=== PATIENT | male | born 1980 | race Hispanic/Latino ===

== ENCOUNTER 2019-12-07 17:17 | Inpatient (IN) ==
[~2019-12-07 17:17] MED LIST: D50W SYRINGE ONE; NS 1,000 ML ONE
[2019-12-07] MEDS ORDERED: HUMULIN R (PARKWAY) ONE ×2 (17:20→18:00)
[2019-12-07] MEDS ORDERED: D50W SYRINGE IV PRN ×4 (17:25→22:30)
[2019-12-07] MEDS ORDERED: HUMULIN R IV ONE ×3 (17:25→22:30)
[2019-12-07] MEDS ORDERED: NS 1,000 ML IV ONE (17:25)
[2019-12-07] MEDS: NS 1,000 ML IV SCH ×3 (17:30→22:35)
[2019-12-07] MEDS ORDERED: SODIUM BICARBONATE 8.4% ONE ×2 (17:35→18:44)
[2019-12-07 17:41] LABS: HEMATOCRIT 46.1 % (42.0-52.0); HEMOGLOBIN 15.6 g/dL (14.0-18.0); MCH 30.6 PG (27-31); MCHC 33.8 g/dL (33-37); MCV 90.6 FL (81-99); MPV 10.9 FL (7.4-10.4); RBC 5.09 XMIL (4.7-6.1); RDW 13.4 % (11.5-14.5); WBC 13.83 X1000 (4.8-10.8)
[2019-12-07] MEDS ORDERED: SODIUM BICARBONATE 8.4% 100 MEQ in STERILE WATER INJ. 500 ML IV PRN ×2 (17:44→22:30)
[2019-12-07] MEDS ORDERED: POTASSIUM CHLORIDE 20% LIQUID PO PRN ×2 (17:44→22:30)
[2019-12-07] MEDS ORDERED: POTASSIUM CHLORIDE 10% LIQUID PO PRN ×2 (17:44→22:30)
[2019-12-07] MEDS ORDERED: MAGNESIUM SULFATE 2 GM/S.W.I. 2 GM/50 ML IVPB IV PRN ×2 (17:44→22:17)
[2019-12-07] MEDS ORDERED: SODIUM PHOSPHATE 30 MMOL in D5W 250 ML IV PRN ×2 (17:44→22:30)
[2019-12-07] MEDS ORDERED: POTASSIUM CHLORIDE 20 MEQ/SWI 20 MEQ/100 ML IVPB IV PRN ×3 (17:44→22:30)
[2019-12-07 17:51] LABS: BLOOD TYPE ARTERIAL; SAMPLE BLOOD
[2019-12-07 17:51] LABS: URINE SOURCE CATH
[2019-12-07 17:52] LABS: METHB 0.8 % (0.0-1.5); PCO2(98.6) 13 mmHg (35-45); PO2(98.6) 140 mmHg (60-100); SAO2 96.9 % (95.0-100.0); THB 15.6 g/dL (11.5-17.4)
[2019-12-07 17:53] LABS: ALLEN TEST YES; MODALITY ROOM AIR; O2(CT) 21.2 mL/dL (15.0-23.0); O2HB 95.6 % (95.0-99.0)
[2019-12-07 17:55] LABS: BILIRUBIN URINE NEGATIVE (NEGATIVE); BLOOD URINE TRACE (NEGATIVE); COLOR STRAW; GLUCOSE URINE >1000 mg/dL (NEGATIVE); KETONE URINE 100 mg/dL (NEGATIVE); LEUKOCYTES URINE NEGATIVE (NEGATIVE); NITRITE URINE NEGATIVE (NEGATIVE); PROTEIN URINE TRACE mg/dL (NEGATIVE); SP GRAVITY URINE 1.019; TURBIDITY URINE CLEAR (CLEAR); UROBILINOGEN URINE NORMAL (NORMAL)
[2019-12-07 17:56] LABS: UR EPITHELIAL CELLS <10 /HPF (<10); URINE BACTERIA NEGATIVE /HPF; URINE RBC <10 /HPF (<10); URINE WBC <10 /HPF (<10)
[2019-12-07] MEDS ORDERED: NS 100 ML ONE (18:01)
[2019-12-07 18:03] LABS: ACETONE SERUM SMALL (NEGATIVE)
[2019-12-07 18:17] LABS: UR AMPHETAMINES QUAL NONE DETECTED (NONE DETECT); UR BARBITUATES QUAL NONE DETECTED (NONE DETECT); UR BENZODIAZEPIN QUAL NONE DETECTED (NONE DETECT); UR CANNABINOIDS QUAL NONE DETECTED (NONE DETECT); UR COCAINE QUAL NONE DETECTED (NONE DETECT); UR METHADONE QUAL NONE DETECTED (NONE DETECT); UR METHAMPHETAMINE QUAL NONE DETECTED (NONE DETECT); UR OPIATES QUAL NONE DETECTED (NONE DETECT); UR OXYCODONE QUAL NONE DETECTED (NONE DETECT); UR PCP QUAL NONE DETECTED (NONE DETECT); UR PROPOXYPHENE QUAL NONE DETECTED (NONE DETECT); UR TCA QUAL NONE DETECTED (NONE DETECT)
[2019-12-07] MEDS: HUMULIN R 100 UNIT in NS 100 ML IV SCH ×3 (18:18→20:30)
[2019-12-07 18:21] LABS: AGAP 34; ALBUMIN 4.9 g/dL (3.5-5.0); ALKALINE PHOSPHATASE 201 U/L (32-122); BUN 20 mg/dL (8-22); CALCIUM 8.3 mg/dL (8.8-10.2); CHLORIDE 85 mmol/L (98-107); CK PROFILE 100 U/L (24-204); COSMO 292; CREATININE 1.1 mg/dL (0.7-1.2); ESTIMATED GFR > 60; GOT 21 U/L (10-34); MAGNESIUM 2.3 mg/dL (1.5-2.7); PHOSPHORUS 4.8 mg/dL (2.7-4.5); POTASSIUM 4.4 mmol/L (3.5-5.1); SODIUM 122 mmol/L (136-145); TCO2 3 mmol/L (25-35); TOTAL BILIRUBIN < 0.15 mg/dL (0.20-1.00)
[2019-12-07 18:24] LABS: GLUCOSE 910 mg/dL (70-104); GPT 22 U/L (10-44)
[2019-12-07] MEDS ORDERED: ZOFRAN IV PRN (18:42)
--- NOTE | 2019-12-07 18:58 | Diag Imaging Result Doc PS360 ---
EXAM: CHEST-PORTABLE 12/07/2019 HISTORY: sob TECHNIQUE: AP portable erect at 1846 COMMENT: The inspiration is suboptimal. There are no previous studies. The heart size and pulmonary vascularity are within normal limits. There is no evidence of focal pulmonary opacity. IMPRESSION: No acute disease. Electronically signed by Andrez Robertson 12/07/2019 6:55 PM
[2019-12-07] MEDS ORDERED: SODIUM BICARBONATE 8.4% IV PUSH ONE ×2 (19:00→22:10)
--- NOTE | 2019-12-07 19:06 | PROVIDER DOCUMENTATION ---
This chart was entered by Nancy Baker Scribe, acting as scribe for Lalo See MD. HPI-General Adult - General Chief Complaint: DKA ALERT Stated Complaint: POSS BLOOD SUGAR Time Seen by Provider: 12/07/19 17:17 Source: patient, family (daughter) Unable to obtain history due to:: altered Allergies/Adverse Reactions: Patient Allergies Allergy/AdvReac Type Severity Reaction Status Date / Time No Known Allergies Allergy Verified 12/07/19 17:54 - History of Present Illness -Gen Adult Nature of Presenting Problems: 39 yohm presents to the ed via pov with ams and weakness. per daughter pt is IDDM and was at a meeting when he became confused and lethargic. pt has insulin at home and daughter sts she is unsure if he takes his insulin at all. pt FSBG checked in ed was greater then 500. Location of Pain/Injury: reports: generalized (weakness) Severity: reports: severe Onset/Duration: reports: this afternoon Timing: reports: still present, constant Context/Activities at Onset: reports: light activity Modifying Factors: improves with: other (insulin) Associated Symptoms: reports: genitourinary problems (increased urination), weakness, trouble walking. denies: nausea, shortness of breath, vomiting Similar Symptoms Previously?: Yes (iddm) Recently seen or treated by another doctor?: No - Diabetes Related Context Context: reports: high blood sugar, change in mental status Review of Systems - Adult - REVIEW OF SYSTEMS - ADULT Constitutional: denies: chills, fever Eyes: reports: no symptoms reported Ears, Nose, Mouth & Throat: reports: no symptoms reported Cardiovascular: denies: chest pain, palpitations Respiratory: denies: cough, shortness of breath, wheezing Gastrointestinal: denies: diarrhea, nausea, vomiting Genitourinary: reports: no symptoms reported Musculoskeletal: reports: see HPI, other (generalized weakness) Integumentary: reports: no symptoms reported Neurological: reports: see HPI, slurred speech, other (ams with confusion) Psychiatric: reports: no symptoms reported Endocrine: reports: see HPI, excessive sweating, increased thirst, polyuria Hematologic/Lymphatic: reports: no symptoms reported Allergic/Immunologic: reports: no symptoms reported All Other Systems: Reviewed and Negative Past History - Adult - PAST MEDICAL HISTORY-ADULT Review of Records: reports: Old Records Reviewed, Nursing Assessment Review, Medications Reviewed, Social history reviewed & non-contributory. Major Childhood Illnesses: reports: denies history Cardiovascular: reports: denies history Respiratory: reports: denies history Gastrointestinal: reports: denies history Genitourinary: reports: denies history Musculoskeletal: reports: denies history Neurological: reports: denies history Endocrine/Immune: reports: Diabetes Diabetes Type: Type 2 Diabetes controlled by:: Insulin Dependent Other Conditions: reports: denies history - PRIOR SURGERIES/PROCEDURES Surgical/Procedure History: reports: reviewed, not pertinent - IMMUNIZATION STATUS Childhood Immunizations: See Nurse Assessment Flu Vaccine: See Nurse Assessment - FAMILY HISTORY Family History: reviewed, not pertinent - SOCIAL HISTORY Smoking: denies Substance Use: denies Living Situation: family Physical Exam-General - PHYSICAL EXAM-ADULT Exam Limited by: pt is confused Initial Vital Signs Reviewed: Yes (BP170/108 HR-112 temp-94.8 rectal) - CONSTITUTIONAL General Appearance: lethargic, slow to respond - EYES Eyes: PERRL/EOMI - HEAD, EARS, NOSE, MOUTH & THROAT HENMT: negative: moist mucous membranes (dry) - NECK Neck: normal inspection - RESPIRATORY Respiratory: chest non-tender, lungs clear, increased rate, other (pt has kussmaul breathing) - CARDIOVASCULAR Cardiovascular: normal peripheral pulses, tachycardia (112) - CHEST (BREASTS) Chest/Breast: deferred - GASTROINTESTINAL (ABDOMEN) Abdominal Exam: non tender, soft, other (well healed scar left to umbilical region/pt does not have bruising or bhakta where insulin would be injected in abd on exam) - GENITOURINARY Male Genitalia: deferred Rectal Exam: deferred Hemoccult Exam: deferred - MUSCULOSKELETAL Extremity: normal capillary refill, other (generalized weakness unable to stand unassisted) - SKIN Integumentary: diaphoresis - PSYCHIATRIC Psych/Mental Status: disoriented x 3 Progress - PLAN OF CARE/RESULTS Result Diagrams: 12/07/19 17:24 12/07/19 17:24 - REASSESSMENT Reassessment #1 Time Reassessed: 17:31 Status: improving (pt is improving with insulin and fluid with dr see at bedside) Reassessment #2 Time Reassessed: 17:59 Status: unchanged (bear hugger in place to get body temp raised) - EKG 1 Time of EKG reading by physician:: 17:22 EKG Read and Signed by:: Lalo See EKG Interpretation (*Must complete 3 of following elements*): Abnormal Rate: 99 Rhythm: nsr [place]: normal QRS: normal IA Interval: normal Comments: nonspecific ST and T wave abnormality - CONSULTS/PCP/HOSPITALIST Notification #1 *Consult/PCP/Hospitalist*: dr kilpatrick hospitalist Time Discussed: 17:57 Consult Disposition: Will see in ED, Admit Departure - Departure Date of Disposition Decision: 12/07/19 Time of Disposition Decision: 19:05 DIAGNOSIS: DKA, type 1 Disposition: ADMITTED INPATIENT 09 Certified Medical Emergency: Emergent Condition: Stable Referrals and Follow-Ups: Jorge Kilpatrick MD [Primary Care Provider] - - Critical Care Note This patient required my direct & personal management of CC.: Yes Total Time (mins): 38 Critical Care Statement: This patient required my direct personal management to treat or rule out processes, the absence of which, could potentiallly result in sudden, clinically significant life or limb threatening deterioration. Attestation - Physician/ HARRISON Attestation Patient care was provided by Advanced Practice Provider:: No The physician spent face to face time with patient:: Yes Advanced Practice Provider documentation review:: Supervising physician onsite and consulted in the evaluation and care of this patient. The physician did have a face to face encounter with the patient. This chart was documented by the indicated scribe, (Nancy Baker Scribe) and accurately reflects the services I performed and decisions made by me, Lalo See MD, as attested by the provider's signature.
[2019-12-07] MEDS: ZOSYN 3.375 GM in NS 50 ML IV SCH (19:25)
--- NOTE | 2019-12-07 21:14 | HISTORY AND PHYSICAL ---
CHIEF COMPLAINT: Elevated blood sugar. HISTORY OF PRESENT ILLNESS: Patient is 39-year-old male who is brought to the emergency department for altered mental status, weakness. His daughter is a automation machine operator. Notes that he has insulin-dependent diabetes. States that she has been fussing on him lately because he has not been checking his sugar. Notes that earlier became confused, lethargic, disoriented, she was unsure if he has been taking his insulin at all. He presented the ER after home check was greater than 500. ALLERGIES: No known drug allergies. REVIEW OF SYSTEMS: Unobtainable from the patient, however the daughter notes that he has had increased urination, increased weakness. He has been confused, disoriented, angry, been increasingly tired and fatigued. Denies any knowledge of fevers, chills, chest pain, palpitations. Does note that he has not been taking his insulin and that she has been fussing at him. He has had increased thirst, has had lots of sweating today. PAST MEDICAL HISTORY: Insulin-dependent diabetes. FAMILY HISTORY: Positive for diabetes. SOCIAL HISTORY: Does not smoke or drink. PHYSICAL: Vital Signs: Reviewed. BP is 170/108, heart rate 112, temperature 94.8 degrees. General: Patient is confused, lethargic, tachypneic, currently in the bed under a Bello Hugger, he does seem to respond decently well to his daughter. She notes that he is improved from when he 1st got to the ER. HEENT: Normocephalic. Neck: Supple. Abdomen: Soft. Extremities: Moves all extremities. Neuro: No changes from previous although he is confused as noted. Cardiovascular: Tachycardia, no murmurs. Chest: Decreased breath sounds bilaterally due to shallow breathing. He is tachypneic. Abdomen: Soft, nondistended, currently in the ER bed underneath a Bello Hugger. He is tachypneic. HEENT normocephalic. Neck supple. CV tachycardia. No apparent murmurs. Chest, he is tachypneic although lungs sound clear. Does have shallow breathing. Abdomen soft. Has a healed scar over his left umbilical region. Extremities moves all extremities. Neuro, he is disoriented, does not answer questions although he does respond somewhat to his daughter. She notes that this has improved. LABS: Reviewed. ASSESSMENT: 1. Diabetic ketoacidosis, pH is 6.8. 2. Leukocytosis, likely more reactionary. 3. Poor home diabetic control. 4. Tachypnea. 5. Tachycardia. 6. Presumed sepsis given that his fever is 94, he is tachypneic, tachycardic although this certainly could be also related to his diabetic ketoacidosis. We are going to admit him to the hospital ICU, place him on insulin drip, follow his labs, give him bicarb and will follow. cc: Jorge Kilpatrick MD
[2019-12-07] MEDS ORDERED: D5 1/2 NS 1,000 ML IV PRN (21:52)
[2019-12-07] MEDS ORDERED: HUMULIN R 100 UNIT in NS 100 ML IV SCH ×2 (22:00→22:30)
[2019-12-07 22:01] LABS: ALLEN TEST YES; BE -25.4 mmoll (-3.0-3.0); BLOOD TYPE ARTERIAL; HCO3-(ACT) 5.1 mmoll (20.0-26.0); METHB 0.5 % (0.0-1.5); O2(CT) 21.8 mL/dL (15.0-23.0); O2HB 96.5 % (95.0-99.0); PO2(98.6) 123 mmHg (60-100); SAMPLE BLOOD; SAO2 96.2 % (95.0-100.0)
[2019-12-07 22:04] LABS: MODALITY ROOM AIR; PCO2(98.6) 10 mmHg (35-45); pH(98.6) 7.05 (7.35-7.45)
[2019-12-07] MEDS ORDERED: MORPHINE IV ONE (22:13)
[2019-12-07 23:19] LABS: AGAP 32; BUN 19 mg/dL (8-22); CALCIUM 7.4 mg/dL (8.8-10.2); CHLORIDE 102 mmol/L (98-107); COSMO 292; CREATININE 1.1 mg/dL (0.7-1.2); ESTIMATED GFR > 60; POTASSIUM 3.2 mmol/L (3.5-5.1); SODIUM 136 mmol/L (136-145); TCO2 2 mmol/L (25-35)
[2019-12-07 23:25] LABS: GLUCOSE 419 mg/dL (70-104)
--- NOTE | 2019-12-07 23:33 | EKG Report ---
Test Performed on : 12/07/2019 5:22:14 PM Test Reason : AMS Blood Pressure : / mmHG Vent. Rate : 099 BPM Atrial Rate : 099 BPM P-R Int : 150 ms QRS Dur : 082 ms QT Int : 356 ms P-R-T Axes : 052 050 196 degrees QTc Int : 456 ms Poor data quality, interpretation may be adversely affected Normal sinus rhythm. Nonspecific ST and T wave abnormality Abnormal ECG No previous ECGs available Unconfirmed Result
[2019-12-08] MEDS: POTASSIUM CHLORIDE 20 MEQ/SWI 40 MEQ/200 ML IVPB IV PRN ×5 (00:01→10:39)
[2019-12-08] MEDS: ZOSYN 3.375 GM in NS 50 ML IV SCH ×5 (00:01→23:50)
[2019-12-08 00:47] LABS: URINE SOURCE CATH
[2019-12-08 00:59] LABS: BILIRUBIN URINE NEGATIVE (NEGATIVE); BLOOD URINE MODERATE (NEGATIVE); COLOR YELLOW; GLUCOSE URINE 1000 mg/dL (NEGATIVE); KETONE URINE >150 mg/dL (NEGATIVE); LEUKOCYTES URINE NEGATIVE (NEGATIVE); NITRITE URINE NEGATIVE (NEGATIVE); PROTEIN URINE 50 mg/dL (NEGATIVE); SP GRAVITY URINE 1.014; TURBIDITY URINE HAZY (CLEAR); UR EPITHELIAL CELLS <10 /HPF (<10); URINE BACTERIA NEGATIVE /HPF; URINE RBC TNTC /HPF (<10); UROBILINOGEN URINE NORMAL (NORMAL)
[2019-12-08 01:39] LABS: ALLEN TEST YES; BE -19.5 mmoll (-3.0-3.0); BLOOD TYPE ARTERIAL; HCO3-(ACT) 9.7 mmoll (20.0-26.0); METHB 0.6 % (0.0-1.5); O2(CT) 21.1 mL/dL (15.0-23.0); O2HB 96.3 % (95.0-99.0); PO2(98.6) 102 mmHg (60-100); SAMPLE BLOOD; THB 15.5 g/dL (11.5-17.4); pH(98.6) 7.21 (7.35-7.45)
[2019-12-08 01:41] LABS: MODALITY ROOM AIR; PCO2(98.6) 14 mmHg (35-45)
[2019-12-08] MEDS ORDERED: MORPHINE IV PRN (01:52)
[2019-12-08 02:45] LABS: ESTIMATED GFR > 60
[2019-12-08 03:03] LABS: AGAP 24; BUN 18 mg/dL (8-22); CALCIUM 8.2 mg/dL (8.8-10.2); CHLORIDE 114 mmol/L (98-107); COSMO 297; CREATININE 1.1 mg/dL (0.7-1.2); GLUCOSE 240 mg/dL (70-104); POTASSIUM 3.2 mmol/L (3.5-5.1); SODIUM 144 mmol/L (136-145); TCO2 6 mmol/L (25-35)
[2019-12-08] MEDS ORDERED: SODIUM PHOSPHATE 20 MMOL in NS 250 ML IV ONE (03:17)
[2019-12-08 04:32] LABS: ALLEN TEST YES; BE -16.4 mmoll (-3.0-3.0); BLOOD TYPE ARTERIAL; METHB 0.7 % (0.0-1.5); O2HB 96.2 % (95.0-99.0); PCO2(98.6) 20 mmHg (35-45); PO2(98.6) 98 mmHg (60-100); SAMPLE BLOOD; SAO2 97.3 % (95.0-100.0); THB 15.5 g/dL (11.5-17.4); pH(98.6) 7.24 (7.35-7.45)
[2019-12-08 04:34] LABS: MODALITY ROOM AIR
[2019-12-08 04:35] LABS: HCO3-(ACT) 12.1 mmoll (20.0-26.0)
[2019-12-08] MEDS: NS 1,000 ML IV SCH ×3 (04:38→14:30)
[2019-12-08] MEDS ORDERED: D5 NS 1,000 ML IV SCH (04:45)
[2019-12-08 07:02] LABS: AGAP 21; BUN 18 mg/dL (8-22); CALCIUM 8.2 mg/dL (8.8-10.2); CHLORIDE 117 mmol/L (98-107); COSMO 297; CREATININE 1.1 mg/dL (0.7-1.2); ESTIMATED GFR > 60; GLUCOSE 178 mg/dL (70-104); MAGNESIUM 2.1 mg/dL (1.5-2.7); POTASSIUM 3.2 mmol/L (3.5-5.1); SODIUM 146 mmol/L (136-145); TCO2 8 mmol/L (25-35)
[2019-12-08 07:35] LABS: PHOSPHORUS 0.9 mg/dL (2.7-4.5)
[2019-12-08 09:50] LABS: ALLEN TEST YES; BE -13.3 mmoll (-3.0-3.0); BLOOD TYPE ARTERIAL; HCO3-(ACT) 14.5 mmoll (20.0-26.0); PCO2(98.6) 26 mmHg (35-45); PO2(98.6) 91 mmHg (60-100); SAMPLE BLOOD; pH(98.6) 7.27 (7.35-7.45)
[2019-12-08 09:52] LABS: MODALITY ROOM AIR
[2019-12-08 12:27] LABS: ESTIMATED GFR > 60
[2019-12-08 12:31] LABS: AGAP 14; BUN 18 mg/dL (8-22); CALCIUM 8.3 mg/dL (8.8-10.2); CHLORIDE 118 mmol/L (98-107); COSMO 290; CREATININE 1.2 mg/dL (0.7-1.2); GLUCOSE 122 mg/dL (70-104); MAGNESIUM 2.1 mg/dL (1.5-2.7); PHOSPHORUS 1.7 mg/dL (2.7-4.5); POTASSIUM 2.9 mmol/L (3.5-5.1); SODIUM 144 mmol/L (136-145); TCO2 12 mmol/L (25-35)
[2019-12-08] MEDS: HUMULIN R SUBQ SCH ×3 (13:06→21:10)
[2019-12-08] MEDS ORDERED: NS 1,000 ML IV SCH (13:30)
[2019-12-08 13:41] LABS: ALLEN TEST YES; BE -18.7 mmoll (-3.0-3.0); BLOOD TYPE ARTERIAL; HCO3-(ACT) 10.3 mmoll (20.0-26.0); METHB 0.6 % (0.0-1.5); O2(CT) 19.5 mL/dL (15.0-23.0); O2HB 96.1 % (95.0-99.0); PO2(98.6) 98 mmHg (60-100); SAMPLE BLOOD; SAO2 97.2 % (95.0-100.0); THB 14.4 g/dL (11.5-17.4); pH(98.6) 7.22 (7.35-7.45)
[2019-12-08 13:43] LABS: PCO2(98.6) 16 mmHg (35-45)
[2019-12-08 13:44] LABS: MODALITY ROOM AIR
--- NOTE | 2019-12-08 16:52 | PROGRESS NOTE ---
DATE: 12/08/2019 SUBJECTIVE: Mr. Robb pelayo 39-year-old. Doctor is Dr. Jorge Kilpatrick. He was brought to the emergency room for altered mental status and weakness. Daughter was trimmer and reinforcer. He has insulin- dependent diabetes. States she has been fussing on him lately because he has not been checking his sugar and he quit taking his insulin because he said it hurts his abdomen, so he came in with DKA. He is feeling better and doing better. His acidosis is completely corrected his temp. OBJECTIVE: He is afebrile, temperature 98.2 degrees, pulse 86, respirations 15, blood pressure 137/80. Pupils are equal and round. Lungs are clear in all lung velasquez. Cardiovascular: Regular rhythm and rate without murmur or S3. Urine output was 7400 and today it was 4000 already. ASSESSMENT AND PLAN: 1. Diabetic ketoacidosis. Came in with a pH of 6.8 is now 7.2. Blood sugars down below 200. We put him on pattern sugars and eating. 2. Leukocytosis, suspect is reactive. No sign of infection. 3. Tachypnea and tachycardia have improved, so hopefully can move out of the unit. Maybe even he will go home tomorrow. 4. I emphasized with him in his family his need for him to take insulin. 5. I will turn his fluids down to 85 mL of normal saline. 6. His home medicines, not sure what insulin he was taking. We will see if we can get him back on a regimen maybe twice a day 70 30 and maybe teach him how to do the injections in his leg or some place else where it does not hurt his abdomen. 7. We have supplemented potassium. cc: Julio Alaniz MD
[2019-12-09] MEDS: NS 1,000 ML IV SCH ×3 (00:40→14:30)
[2019-12-09] MEDS: HUMULIN R SUBQ SCH ×2 (06:34→11:32)
[2019-12-09] MEDS: ZOSYN 3.375 GM in NS 50 ML IV SCH ×3 (07:15→17:48)
[2019-12-09 07:35] LABS: AGAP 21; ALB/GLOB RATIO 1.1; ALBUMIN 3.2 g/dL (3.5-5.0); ALKALINE PHOSPHATASE 117 U/L (32-122); BUN 14 mg/dL (8-22); CALCIUM 8.7 mg/dL (8.8-10.2); CHLORIDE 106 mmol/L (98-107); COSMO 288; CREATININE 1.2 mg/dL (0.7-1.2); ESTIMATED GFR > 60; GLUCOSE 308 mg/dL (70-104); GOT 16 U/L (10-34); GPT 16 U/L (10-44); POTASSIUM 2.8 mmol/L (3.5-5.1); SODIUM 138 mmol/L (136-145); TCO2 11 mmol/L (25-35); TOTAL BILIRUBIN 0.45 mg/dL (0.20-1.00)
[2019-12-09 08:09] LABS: BASO# 0.03 X1000 (0.0-0.2); BASO% 0.6 % (0.0-0.8); EOS# 0.16 X1000 (0.0-0.7); HEMATOCRIT 38.9 % (42.0-52.0); IMM GRAN# 0.02 X1000 (0.0-0.04); IMM GRAN% 0.4 % (0.0-0.5); LYMPH# 0.89 X1000 (1.2-3.4); LYMPH% 16.5 % (20.5-51.1); MCH 30.9 PG (27-31); MCV 85.9 FL (81-99); MONO# 0.77 X1000 (0.11-0.59); MONO% 14.3 % (1.7-9.3); MPV 10.4 FL (7.4-10.4); NEUT# 3.53 X1000 (1.4-6.5); NEUT% 65.2 % (42.2-75.2); PLT 183 X1000 (130-400); RBC 4.53 XMIL (4.7-6.1)
[2019-12-09] MEDS ORDERED: LANTUS INSULIN SUBQ ONE (11:23)
[2019-12-09] MEDS ORDERED: KLOR-CON PO ONE (11:24)
--- NOTE | 2019-12-09 11:49 | PROGRESS NOTE ---
DATE: 12/09/2019 SUBJECTIVE: I have seen and examined Mr. Easley today. Mr. Easley refers to be feeling a whole lot better. The son was at the bedside at the time of the encounter. Mr. Easley tells me today that he has been diabetic for a very long time, has really not been very careful taking care of his medical condition. He said normally he would use the pills, but then take insulin any time he feels the sugar is high, and according to him, he said his sugars have been pretty high lately. INCOMPLETE REPORT -- DICTATION ENDS HERE. cc: Yuniel Pierce MD
--- NOTE | 2019-12-09 12:00 | PROGRESS NOTE ---
DATE: 12/09/2019 SUBJECTIVE: I have seen and examined Mr. Easley. Today, Mr. Easley refers to be doing well. He said he has really not been taking very good care of his diabetes. Takes insulin when he thinks it is high. The son was at the bedside at the time of the encounter. OBJECTIVE: Current Vital Signs: Blood pressure is 115/70, pulse of 73, respirations are 17. General Examination: Mr. Easley is a 39-year-old, gentleman. He is in bed. No distress. HEENT: Mucosa is pink, slightly dry. Anicteric. Acyanotic. Neck: Supple. Chest: Clear to auscultation. No crepitations. No rhonchi. Cardiovascular: Regular rate and rhythm. GI: Abdomen is soft, nontender. Bowel sounds present. Extremities: No pedal edema. RECRUITMENT CONSULTANT: The patient is awake, alert, and oriented. The patient's chest x-ray on admission showed no acute disease. Laboratory Data: This morning, chemistry still shows a bicarb of 11, with a gap of 21, glucose is 308. Patient continues to be in DKA. ASSESSMENT: 1. Unresolved diabetic ketoacidosis. We are going to start the patient back on the protocol, running it for a couple of hours and recheck on his chemistry to see if it gets resolved. 2. Diabetes mellitus with poor care at home. Patient will be advised to follow up with diabetic education in [place]. 3. Leukocytosis. I think this is reactive. However, patient has been started on antibiotics. We will wait for the cultures, final report, and then make a decision accordingly. 4. Clinical volume depletion. We will continue with intravenous fluids. PLAN: In general, this morning, we thought we could send Mr. Easley to the floor. However, his labs continue to show that he is in DKA with an anion gap of 21, bicarb of 11, so we are going to continue with the DKA protocol. Repeat his labs in about 4 hours from now and make further determinations. cc: Yuniel Pierce MD
[2019-12-09] MEDS: POTASSIUM CHLORIDE 20 MEQ/SWI 20 MEQ/100 ML IVPB IV SCH ×2 (12:34→15:00)
[2019-12-09] MEDS ORDERED: D50W SYRINGE IV PRN (12:50)
[2019-12-09] MEDS ORDERED: HUMULIN R IV ONE (12:50)
[2019-12-09] MEDS ORDERED: HUMULIN R 100 UNIT in NS 100 ML IV SCH (13:00)
[2019-12-09] MEDS ORDERED: ZOFRAN IV PRN (13:01)
[2019-12-09 15:14] LABS: AGAP 12; BUN 13 mg/dL (8-22); CALCIUM 8.9 mg/dL (8.8-10.2); CHLORIDE 109 mmol/L (98-107); COSMO 283; CREATININE 1.2 mg/dL (0.7-1.2); ESTIMATED GFR > 60; GLUCOSE 156 mg/dL (70-104); PHOSPHORUS 2.3 mg/dL (2.7-4.5); SODIUM 140 mmol/L (136-145); TCO2 19 mmol/L (25-35)
[2019-12-09] MEDS ORDERED: POTASSIUM CHLORIDE 20% LIQUID PO ONE (15:20)
[2019-12-09 17:06] LABS: AGAP 12; BUN 11 mg/dL (8-22); CHLORIDE 110 mmol/L (98-107); COSMO 277; CREATININE 1.1 mg/dL (0.7-1.2); ESTIMATED GFR > 60; GLUCOSE 105 mg/dL (70-104); MAGNESIUM 2.2 mg/dL (1.5-2.7); PHOSPHORUS 2.3 mg/dL (2.7-4.5); POTASSIUM 3.1 mmol/L (3.5-5.1); SODIUM 139 mmol/L (136-145); TCO2 17 mmol/L (25-35)
[2019-12-09] MEDS ORDERED: SODIUM PHOSPHATE 30 MMOL in NS 250 ML IV PRN (17:14)
[2019-12-09] MEDS ORDERED: MAGNESIUM SULFATE 2 GM/S.W.I. 2 GM/50 ML IVPB IV PRN (17:14)
[2019-12-09] MEDS ORDERED: POTASSIUM CHLORIDE 10% LIQUID PO PRN (17:14)
[2019-12-09] MEDS: D5 1/2 NS 1,000 ML IV SCH (17:48)
[2019-12-09 21:43] LABS: AGAP 15; BUN 11 mg/dL (8-22); CALCIUM 8.6 mg/dL (8.8-10.2); CHLORIDE 104 mmol/L (98-107); COSMO 276; ESTIMATED GFR > 60; GLUCOSE 284 mg/dL (70-104); PHOSPHORUS 2.4 mg/dL (2.7-4.5); POTASSIUM 3.7 mmol/L (3.5-5.1); SODIUM 133 mmol/L (136-145); TCO2 14 mmol/L (25-35)
[2019-12-09] MEDS: POTASSIUM CHLORIDE 20% LIQUID PO PRN (21:49)
[2019-12-10] MEDS: ZOSYN 3.375 GM in NS 50 ML IV SCH ×2 (00:07→06:20)
[2019-12-10 01:18] LABS: AGAP 12; BUN 9 mg/dL (8-22); CALCIUM 8.8 mg/dL (8.8-10.2); CHLORIDE 108 mmol/L (98-107); COSMO 278; ESTIMATED GFR > 60; GLUCOSE 189 mg/dL (70-104); MAGNESIUM 2.1 mg/dL (1.5-2.7); POTASSIUM 3.3 mmol/L (3.5-5.1); SODIUM 137 mmol/L (136-145); TCO2 17 mmol/L (25-35)
[2019-12-10] MEDS: POTASSIUM CHLORIDE 20% LIQUID PO PRN (02:11)
[2019-12-10] MEDS: NS 1,000 ML IV SCH (02:33)
[2019-12-10] MEDS: D5 1/2 NS 1,000 ML IV SCH (05:51)
[2019-12-10 07:42] LABS: AGAP 12; BUN 9 mg/dL (8-22); CALCIUM 8.8 mg/dL (8.8-10.2); CHLORIDE 109 mmol/L (98-107); COSMO 279; CREATININE 0.8 mg/dL (0.7-1.2); ESTIMATED GFR > 60; GLUCOSE 209 mg/dL (70-104); MAGNESIUM 2.2 mg/dL (1.5-2.7); POTASSIUM 3.5 mmol/L (3.5-5.1); SODIUM 137 mmol/L (136-145); TCO2 16 mmol/L (25-35)
[2019-12-10 08:00] LABS: CHOLESTEROL 258 mg/dL (0-200); HDL 35 mg/dL (35-55); LDL 175 mg/dL; TRIGLYCERIDES 240 mg/dL (39-160); VLDL 48 mg/dL
[2019-12-10 08:07] LABS: HEMOGLOBIN A1C 16.9 % (4.8-6.0)
[2019-12-10] MEDS ORDERED: INSULIN PEN NEEDLES ONE (08:58)
[2019-12-10] MEDS ORDERED: LANTUS INSULIN SUBQ SCH (09:00)
[2019-12-10] MEDS: HUMULIN 70/30 SUBQ SCH (09:07)
[2019-12-10 10:04] LABS: AGAP 12; BUN 9 mg/dL (8-22); CALCIUM 8.4 mg/dL (8.8-10.2); CHLORIDE 105 mmol/L (98-107); COSMO 280; CREATININE 0.9 mg/dL (0.7-1.2); ESTIMATED GFR > 60; GLUCOSE 294 mg/dL (70-104); MAGNESIUM 1.8 mg/dL (1.5-2.7); POTASSIUM 3.4 mmol/L (3.5-5.1); SODIUM 135 mmol/L (136-145); TCO2 18 mmol/L (25-35)
[2019-12-10] MEDS: 1/2 NS + KCL 20 MEQ 1,000 ML IV SCH (11:16)
[2019-12-10] MEDS: HUMALOG SUBQ SCH ×3 (11:41→20:57)
[2019-12-10] MEDS ORDERED: HUMULIN 70/30 SUBQ SCH (16:00)
--- NOTE | 2019-12-10 17:51 | PROGRESS NOTE ---
DATE: 12/10/2019 SUBJECTIVE: I have seen and examined Mr. Easley today. Mr. Easley refers to be doing well. Denies any new complaints. OBJECTIVE: Vital signs: Blood pressure is 104/62, pulse of 68, respirations 15, temperature is 98.6 degrees. General: Mr. Easley is a 39-year-old, gentleman. He is in bed, no distress. Mucosa is pink and moist. Anicteric, acyanotic. Neck: Supple. Chest: Good air entry bilaterally. There are no crepitations, no rhonchi. Cardiovascular: Regular rate and rhythm. No murmurs. No rubs. No gallops. Gastrointestinal: Abdomen is soft, nontender. Bowel sounds present. Extremities: No pedal edema. Central nervous system: Patient is awake, alert, oriented. There is no focal deficit. INTAKE AND OUTPUT: Urine output was 1700. Patient has negative balance of 2000. IMAGING STUDIES: None today. LABORATORY DATA: Chemistry shows sodium of 135, potassium of 3.4, chloride is 105, bicarbonate is 18, glucose is 294. ASSESSMENT: 1. Diabetic ketoacidosis. Resolved. 2. Uncontrolled diabetes mellitus with presenting A1c of 16.9. 3. Dyslipidemia. We will start the patient on statin drugs. 4. Clinical volume depletion. We will continue with fluid resuscitation. 5. Reactive leukocytosis. Blood cultures have been negative. No source of infection. Antibiotics have been discontinued today. 6. Microalbuminuria. Noted the patient will be started on a very low-dose lisinopril. PLAN: In general, Mr. Easley is doing well. Gonzalez catheter will be removed today. The patient has been started on atorvastatin and lisinopril. We are going to transfer him from the ICU to the medical floor, continue with the insulin regimen, and hopefully get him discharged tomorrow. cc: Yuniel Pierce MD
[2019-12-10] MEDS ORDERED: LIPITOR PO SCH (21:00)
[2019-12-11] MEDS: 1/2 NS + KCL 20 MEQ 1,000 ML IV SCH (00:20)
[2019-12-11] MEDS: HUMALOG SUBQ SCH ×2 (06:32→10:45)
[2019-12-11] MEDS: HUMULIN 70/30 SUBQ SCH (06:33)
[2019-12-11 08:43] LABS: BASO# 0.06 X1000 (0.0-0.2); BASO% 1.4 % (0.0-0.8); EOS# 0.96 X1000 (0.0-0.7); EOS% 22.4 % (0.0-10.0); HEMATOCRIT 36.1 % (42.0-52.0); HEMOGLOBIN 12.2 g/dL (14.0-18.0); LYMPH# 1.18 X1000 (1.2-3.4); LYMPH% 27.5 % (20.5-51.1); MCH 30.2 PG (27-31); MCHC 33.8 g/dL (33-37); MCV 89.4 FL (81-99); MONO# 0.29 X1000 (0.11-0.59); MONO% 6.8 % (1.7-9.3); MPV 10.4 FL (7.4-10.4); NEUT% 41.9 % (42.2-75.2); PLT 172 X1000 (130-400); RBC 4.04 XMIL (4.7-6.1); WBC 4.29 X1000 (4.8-10.8)
[2019-12-11 08:54] LABS: AGAP 13; BUN 10 mg/dL (8-22); CALCIUM 8.8 mg/dL (8.8-10.2); CHLORIDE 104 mmol/L (98-107); COSMO 285; CREATININE 0.9 mg/dL (0.7-1.2); ESTIMATED GFR > 60; GLUCOSE 311 mg/dL (70-104); PHOSPHORUS 3.9 mg/dL (2.7-4.5); POTASSIUM 3.9 mmol/L (3.5-5.1); SODIUM 137 mmol/L (136-145); TCO2 20 mmol/L (25-35)
[2019-12-11] MEDS ORDERED: PRINIVIL PO SCH (09:00)
[2019-12-11 09:46] LABS: BANDS 2 % (0-1); EOS 28 % (1-10); LYMPHS 26 % (21-51); MONO 4 % (1-9); SEGS 40 % (42-75)
[2019-12-11 09:47] LABS: ANISOCYTOSIS 1+; HYPOCHROM 1+
[2019-12-11 11:48] VITALS: BP 100/62
[2019-12-11] MEDS ORDERED: FLU VACCINE IM ONE (13:06)
[2019-12-11] MEDS ORDERED: PREVNAR 13 IM ONE (13:12)
--- NOTE | 2019-12-12 15:54 | DISCHARGE SUMMARY ---
ADMISSION DATE: 12/07/2019 DISCHARGE DATE: 12/11/2019 DISPOSITION: Home. FOLLOW-UP: Ms. Sachi Harrison. Dr. Kilpatrick. . CONSULTATION DURING THIS ADMISSION: None. INVASIVE PROCEDURES DONE DURING THIS ADMISSION: 1. None. IMAGING STATUS OF SIGNIFICANCE: A chest x-ray showed no acute disease. ADMISSION DIAGNOSIS: 1. DKA. 2. Leukocytosis. 3. Poor home diabetic control. DIAGNOSIS AT THE TIME OF DISCHARGE: 1. DKA, resolved. 2. Uncontrolled diabetes mellitus with presenting A1c of 16.9. 3. Dyslipidemia. 4. Clinical volume depletion, improved. 5. Reactive leukocytosis. Cultures negative. 6. Microalbuminuria. DISCHARGE MEDICATIONS: 1. Insulin 70/30, 25 units in the morning and 15 units in the evening. 2. Lisinopril 2.5 p.o. daily. 3. Atorvastatin 40 mg p.o. daily. PRESENTING COMPLAINT: Elevated blood sugar. HISTORY OF PRESENT COMPLAINT: Mr. Easley is a 39-year-old male who presented to the emergency department because of elevated blood glucose, altered mental status, weakness. On presentation, patient was evaluated, was found to have a glucose level of more than 500. Laboratory data revealed that he was in DKA. He was admitted to the critical care unit for management. HOSPITAL COURSE: Mr. Easley was admitted to the ICU, was started on DKA protocol, which he has he responded very well. He was also adequately fluid resuscitated. During the hospital course, DKA got resolved and he was eventually transferred from the ICU to the medical floor. He was stabilized on a regular insulin regimen. Blood cultures and urine cultures came back negative so antibiotics were discontinued. Hydration status also improved. He was started on a diabetic diet. We also discussed dietary as well as lifestyle modifications for better glycemic control management. Mr. Easley will also follow up with diabetic education in [place]. All the discharge instructions have been discussed with him. was at the bedside. 2 kids were at the bedside. All of them voiced understanding and recommendations were all made in his [place] language, [place]. This morning Mr. Easley is stable. His current vitals: Blood pressure is 100/62, pulse of 65, respirations 18, temperature 98.1 degrees. The patient is saturating 100% on room air. He has been tolerating his diet. He is having regular bowel movement. He is going to be discharged in stable conditions. All the discharge instructions discussed. Voiced understanding. Time spent for discharge is 35 minutes. cc: Yuniel Pierce MD
== END 2019-12-11 13:59 | disposition home or self-care (01) | DRG 639 ==
LOC: P.ED 17:17 → ICU 20:03 → SUATTDRO 20:03 → 3N 12-10 22:48
PROVIDERS: ATTEND Internal Medicine